=== PATIENT | male | born 1990 | race Caucasian/White ===

== ENCOUNTER 2020-10-05 16:17 | Outpatient (REF) | payer MEDICAID, SELFPAY | END 2020-10-05 16:18 | disposition home or self-care (01) | LOC: HO.LAB 16:17 | PROVIDERS: Visit Provider Internal Medicine | DX: Z20.822 Contact with and (suspected) exposure to COVID-19 (principal) | CPT/HCPCS: 36415; C9803; U0003 ==

== ENCOUNTER 2020-11-09 15:34 | Outpatient (REF) | payer MEDICAID, SELFPAY | END 2020-11-09 15:35 | disposition home or self-care (01) | LOC: HO.LAB 15:34 | PROVIDERS: Visit Provider Internal Medicine | DX: Z20.822 Contact with and (suspected) exposure to COVID-19 (principal) | CPT/HCPCS: 36415; C9803; U0003; U0005 ==

== ENCOUNTER 2021-01-28 10:17 | Emergency (ER) | payer MEDICAID, SELFPAY ==
[2021-01-28 10:22] VITALS: BP 148/74; PULSE 100; RESP 18; TEMP 36.7; O2SAT 95; BMI 37.2
--- NOTE | 2021-01-28 10:28 | ED.SKABFB ---
HPI - Skin/Abscess/Foreign Bdy General Chief complaint: Skin/Abscess/Foreign Body Stated complaint: RASH Time Seen by Provider: 01/28/21 10:28 Source: patient Mode of arrival: ambulatory Limitations: no limitations History of Present Illness HPI narrative: 30 y/o male presenting to the ER from home c/o of rash on his chest for the last 2 days. It is red and itchy and spread to his back. It all started on a small lesion on his right forearm. He has tried Benadryl x1 without improvement. He denies new soaps, lotions, detergents, colognes. No one in the home has a similar rash. No fever chills, facial swelling or difficulty breathing. No history of allergies. MD complaint: rash Onset (ago): day(s) (2) Tetanus up to date: yes Location: chest, back and RUE Severity: moderate Quality: pruritic Pain Consistency: constant Relieving factors: medication Exacerbating factors: palpation Context: none Associated symptoms: denies other symptoms Treatments prior to arrival: none Related Data Previous Rx's Medication Instructions Recorded prednisone 10 mg PO PER PKG DIR #48 ea 01/28/21 Allergies Allergy/AdvReac Type Severity Reaction Status Date / Time No Known Allergies Allergy Verified 01/28/21 10:24 Review of Systems Review of Systems: Constitutional: No Fever, No Chills ENT/Mouth: No sore throat, No Swallowing Difficulty Eyes: No Eye Pain, No Swelling, No Redness Cardiovascular: No Chest Pain, No SOB Respiratory: No Cough, No Sputum, No Wheezing Gastrointestinal: No Nausea, No Vomiting, No Diarrhea, No abdominal Pain Musculoskeletal: No joint pain, No Myalgias Skin: No Skin Lesions, + rash Neuro: No Weakness, No Numbness Psych: + Anxiety/Nohelia Heme/Lymph: No Bruising, No Lymphadenopathy PMFSH Past Medical History Attestation statement: The following information was validated with the patient. Medical History No known health problems Social History Social History Advance Directives: No Advance Directives Information Provided: No Physical Exam Vital Signs: Vital Signs: Last Vital Signs Temp 98.0 F 01/28/21 10:22 Pulse 100 01/28/21 10:22 Resp 18 01/28/21 10:22 BP 148/74 H 01/28/21 10:22 Pulse Ox 95 01/28/21 10:22 Body Mass Index 37.2 Appearance: Alert. Oriented X3. No acute distress. Eyes: Pupils equal, round and reactive to light. ENT: Pharynx normal. No swelling. Neck: Normal inspection. Neck supple. CVS: Normal heart rate and rhythm. Pulses normal. Respiratory: No respiratory distress. Breath sounds normal. Skin: Skin warm and dry. Normal skin color. Normal skin turgor. Diffuse scattered small erythematous papules on trunk anteriorly and posteriorly. no warmth or tenderness. no surrouding erythema or pustules. no crusting. Extremities: No lower extremity edema. No lesions on LE. 1 <0.5 cm lesion on right forearm, mild excoriated. Neuro: Oriented X 3. Anxious Course Course Course Narrative: 30 y/o male presenting with pruritic rash to trunk x2 days spread from lesion on RUE. Etiology is unclear but it is likely a contact or irritant dermatitis. No fever or systemic signs of infection. No respiratory involvement. Given BSA will treat with oral prednisone taper and Benadryl as needed for symptomatic relief. Patient counseled on management and is stable for d/c. Discharge Plan Discharge Clinical Impression: Contact dermatitis Qualifiers: Contact dermatitis type: unspecified Contact dermatitis trigger: unspecified trigger Qualified Code(s): L25.9 - Unspecified contact dermatitis, unspecified cause Patient Disposition: Home, Self-Care Instructions: Dermatitis (ED) Additional Instructions: Take the prescribed prednisone taper as directed on the package. Take Benadryl 50 mg every 6 hours as needed for itching. Recommend trial of topical hydrocortisone cream for itching as well, found over the counter. Use cool compresses as needed for itching and discomfort. If you have worsening symptoms or develop facial swelling or difficulty breathing come back to the ER for further evaluation. Prescriptions: New prednisone 10 mg tablets,dose pack 10 mg PO PER PKG DIR Qty: 48 RF: 0 Stand Alone Forms: Work/School Release Interventions: ED Discharge Assessment Last Done: 01/28/21 11:06 Discharge Date/Time: 01/28/21 11:06
== END 2021-01-28 11:06 | disposition home or self-care (01) ==
PROVIDERS: Emergency Provider Emergency Medicine Emergency Medical Services
DX: L25.9 Unspecified contact dermatitis, unspecified cause (principal); R21 Rash and other nonspecific skin eruption
CPT/HCPCS: 99283

== ENCOUNTER 2021-09-21 13:19 | Outpatient (REF) | payer MEDICAID, SELFPAY ==
[2021-09-21 16:03] LABS: Binax Internal Control QC Valid; Binax Now Covid-19 Ag Negative (Negative)
== END 2021-09-21 13:20 | disposition home or self-care (01) ==
LOC: HO.LAB 13:19
PROVIDERS: Visit Provider Internal Medicine
DX: Z20.822 Contact with and (suspected) exposure to COVID-19 (principal)
CPT/HCPCS: 36415; C9803